=== PATIENT | male | born 1945 | race Hispanic/Latino ===

== ENCOUNTER → 2022-08-20 | Outpatient (CLI) | payer OTHER ==
[~2022-08-20] MED LIST: ASPI-1197 PO; LOSA1TAB37 PO; advil PO
== END | disposition home or self-care (01) ==
LOC: SHCH 15:01
PROVIDERS: ATTEND Student in an Organized Health Care Education/Training Program
DX: I25.10 Atherosclerotic heart disease of native coronary artery without angina pectoris (principal); I10 Essential (primary) hypertension
CPT/HCPCS: 93306